=== PATIENT | female | born 1965 | race Caucasian/White ===

== ENCOUNTER 2019-06-20 11:11 | Outpatient (CLI) | payer BC ==
--- NOTE | 2019-06-20 11:49 | BD ---
EXAM: DEXA bone density examination HISTORY: 53-year-old postmenopausal female for screening COMPARISON: None FINDINGS: L1--bone mineral density 0.966 g/sq cm; T score -0.2 L2--bone mineral density 1.042 g/sq cm; T score 0.1 L3--bone mineral density 1.035 g/sq cm; T score -0.4 L4--bone mineral density 1.179 g/sq cm; T score 1.1 Total L1-L4--bone mineral density 1.063 g/sq cm; T score 0.1 Left femoral neck--bone mineral density0.649; T score -1.8 Total proximal left femur--bone mineral density 0.799; T score -1.2 IMPRESSION: Osteopenia This patient has a 10 year WHO fracture risk of a major osteoporotic fracture of 7.3% and of a hip fracture of 0.7%.
== END 2019-06-20 11:12 | disposition home or self-care (01) ==
LOC: BICMAMMO 11:11
PROVIDERS: ATTEND Internal Medicine Hematology & Oncology
DX: Z13.820 Encounter for screening for osteoporosis (principal); C50.919 Malignant neoplasm of unspecified site of unspecified female breast; M85.89 Other specified disorders of bone density and structure, multiple sites
CPT/HCPCS: 77080